=== PATIENT | male | born 1955 | race Caucasian/White ===

== ENCOUNTER 2016-06-23 09:48 | Emergency (ER) | payer MEDICARE, OTHER | END 2016-06-23 14:55 | disposition home or self-care (01) | LOC: ER 09:48 | DX: R07.9 Chest pain, unspecified (principal); R06.02 Shortness of breath; R00.1 Bradycardia, unspecified; I48.92 Unspecified atrial flutter; Z79.899 Other long term (current) drug therapy; Z79.01 Long term (current) use of anticoagulants | CPT/HCPCS: 36415 ==